=== PATIENT | male | born 1975 | race Caucasian/White ===

== ENCOUNTER 2016-07-17 21:22 | Emergency (ER) | payer MEDICAID ==
--- NOTE | 2016-07-17 23:01 | EDPHY ---
H & P Smoking Status: Never smoked Time Seen by Provider: 07/17/16 22:14 HPI/ROS: CHIEF COMPLAINT: Right tooth pain HISTORY OF PRESENT ILLNESS: 40-year-old male presents to the emergency department with right lower dental pain. The patient states that he broke his right lower tooth a long time ago and over the last few days has noticed pain and burning sensation in his right lower gums radiating up into his right forehead. He denies any acute trauma. He does not have a dentist. No fevers or chills. He has been taking ibuprofen and Percocet at home for pain. ROS: Denies dysphagia, facial swelling, fevers or chills. ([place] Nath) Past Medical/Surgical History: [place] teeth extraction, orthopedic surgery, back surgery, chronic back pain ( [place] Nath) Social History: and lives in [place] ([place] Nath) Physical Exam: On examination the patient has no facial swelling. He speaking in full sentences. No trismus. Afebrile. He has a fractured right lower 2nd molar. He has no obvious abscess or signs of swelling. He has reproducible pain with palpation in the right lower gingival mucosa. There is no posterior pharyngeal injection noted. No cervical lymphadenopathy. Neck is supple. No evidence of obvious abscess. No palpable fluctuance. ([place] Nath) Constitutional: Initial Vital Signs Temperature (C) 36.5 C 07/17/16 21:33 Heart Rate 103 H 07/17/16 21:33 Respiratory Rate 20 07/17/16 21:33 Blood Pressure 126/94 H 07/17/16 21:33 O2 Sat (%) 99 07/17/16 21:33 O2 Delivery Mode Room Air Allergies/Adverse Reactions: amoxicillin Allergy (Verified 07/17/16 21:33) Home Medications: Medication Instructions Recorded Adderall 10 MG (RX) 02/06/14 Amoxicillin Trihydrate 500 mg PO Q8 #30 cap 02/06/14 [Amoxicillin 500mg capsule] IBUPROFEN 02/06/14 oxyCODONE/APAP 5/325 [Percocet] 1 - 2 tab PO Q4-6PRN PRN #13 tab 02/06/14 Clindamycin 450 mg PO Q8 #90 cap 07/17/16 MDM/Departure - MDM Medications Given: Discontinued Medications Clindamycin (Cleocin 150 Mg Prepack#6) 1 btl ALANA CADET ONE PRN Reason: Protocol Stop: 07/17/16 23:03 Last Admin: 07/17/16 23:08 Dose: 1 btl ED Course/Re-evaluation: 40-year-old male presents to the emergency department with right lower dental pain. There is no obvious abscess. He has a known allergy to amoxicillin. He was started on clindamycin. He was given dental referral. He was instructed to return if he developed facial swelling, fever, or if he felt worse in any way. ([place] Nath) I did not see this patient while he was in the emergency department. However his care was discussed with the PA while the patient was in the department. I agree with treatment plan and management (Mark Gee) - Depart Disposition: Home, Routine, Self-Care Clinical Impression: Dental infection Fractured tooth Qualifiers: Encounter type: initial encounter Fracture type: closed Qualified Code(s): S02.5XXA - Fracture of tooth (traumatic), initial encounter for closed fracture Condition: Good Instructions: Clindamycin (By mouth), Dental Caries (ED), Toothache (ED) Additional Instructions: Clindamycin as directed. Warm salt water gargles as discussed. Apply warm compresses to your cheek. Ibuprofen 600 mg every 8 hours as needed for pain you should follow up with a dentist as soon as possible. Return if you develop fever, facial swelling, increasing pain, or if you feel worse in any way. Prescriptions: Clindamycin 450 mg PO Q8 #90 cap Referrals: [facility] [Other] - As per Instructions [facility] [Outside] - As per Instructions [facility] [Outside] - As per Instructions Dental [facility] [Outside] - As per Instructions Dental [facility] [Outside] - As per Instructions Dental [facility] [Outside] - As per Instructions
[2016-07-17] MEDS ORDERED: CLINDAMYCIN 150MG PREPACK#6 BTL TAKEHOME ONE (23:02)
[2016-07-17 23:09] VITALS: BP 133/74; PULSE 74; RESP 16; TEMP 97.9; O2SAT 96
== END 2016-07-17 23:09 | disposition home or self-care (01) ==
DX: K04.7 Periapical abscess without sinus (principal); K03.81 Cracked tooth

== ENCOUNTER 2017-06-02 00:55 | Emergency (ER) | payer MEDICAID ==
[2017-06-02 01:02] VITALS: RESP 18; O2SAT 97
[2017-06-02] MEDS ORDERED: KETOROLAC 15 MG/1 ML SDV IVP ONE (01:55)
[2017-06-02] MEDS ORDERED: DIAZEPAM 5 MG/ML 1 ML SYR IVP ONE (01:55)
[2017-06-02] MEDS ORDERED: DEXAMETHASONE 4 MG/ML VIAL IVP ONE (01:55)
[2017-06-02] MEDS ORDERED: GABAPENTIN 300 MG CAP PO ONE (01:55)
--- NOTE | 2017-06-02 04:16 | EDPHY ---
H & P Stated Complaint: Back pain, cant stand, "shooting pains" Time Seen by Provider: 06/02/17 01:27 HPI/ROS: HPI The patient presents with lower back pain which has been present for the last several days. He thinks he injured his back a few days ago with heavy lifting. He does have a history of chronic low back pain which is occasionally exacerbated. He has been taking Percocet and ibuprofen without any improvement in his symptoms. He does have pain that radiates to his right anterior thigh which is sharp in nature. His pain is worse with walking, flexion of his neck. He denies any leg weakness. He does not have any changes in his bowel or bladder function. He does report paresthesias in his legs. REVIEW OF SYSTEMS Constitutional: No fever, no chills. Eyes: No discharge. ENT: No sore throat. Cardiovascular: No chest pain, no palpitations. Respiratory: No cough, no shortness of breath. Gastrointestinal: No abdominal pain, no vomiting. Genitourinary: No hematuria. Musculoskeletal: Positive for back pain. Skin: No rashes. Neurological: No headache. 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 PHYSICAL General Appearance: Alert, no distress Eyes: Pupils equal and round no pallor or injection ENT, Mouth: Mucous membranes moist Respiratory: There are no retractions, lungs are clear to auscultation Cardiovascular: Regular rate and rhythm Gastrointestinal: Abdomen is soft and non-tender, no masses, bowel sounds normal Back: There is tenderness to palpation of the right lower lumbar paraspinal muscles, there is no midline tenderness Neurological: A&O, strength is 5/5 in the lower extremities though somewhat limited by pain, there is decreased sensation to light touch throughout his feet Skin: Warm and dry, no rashes Musculoskeletal: Neck is supple non tender Extremities: symmetrical, full range of motion Psychiatric: Patient is oriented X 3, there is no agitation Source: Patient - Personal History Current Tetanus Diphtheria and Acellular Pertussis (TDAP): Yes Tetanus Vaccine Date: 2009 - Medical/Surgical History Hx Asthma: No Hx Chronic Respiratory Disease: No Hx Diabetes: No Hx Cardiac Disease: No Hx Renal Disease: No Hx Cirrhosis: No Hx Alcoholism: No Hx HIV/AIDS: No Hx Splenectomy or Spleen Trauma: No Other PMH: low back surgery. L ankle surgery. R knee surgery. wisdom teeth removed - Social History Smoking Status: Never smoked Constitutional: Initial Vital Signs Temperature (C) 36.7 C 06/02/17 00:59 Heart Rate 89 06/02/17 00:59 Respiratory Rate 18 06/02/17 00:59 Blood Pressure 127/82 H 06/02/17 00:59 O2 Sat (%) 97 06/02/17 00:59 O2 Delivery Mode Room Air Allergies/Adverse Reactions: amoxicillin Allergy (Verified 06/02/17 00:58) Home Medications: Medication Instructions Recorded Adderall 10 MG (RX) 02/06/14 Amoxicillin Trihydrate 500 mg PO Q8 #30 cap 02/06/14 [Amoxicillin 500mg capsule] IBUPROFEN 02/06/14 oxyCODONE/APAP 5/325 [Percocet] 1 - 2 tab PO Q4-6PRN PRN #13 tab 02/06/14 Clindamycin 450 mg PO Q8 #90 cap 07/17/16 Diazepam [Valium 5 MG (*)] 5 mg PO TID PRN #15 tab 06/02/17 methylPREDNISolone [Medrol Dose 4 mg PO DAILY 7 Days ea 06/02/17 Erik] Medical Decision Making Differential Diagnosis: This is a a 41-year-old male with history of lumbar diskectomy about 10 years ago who presents with ongoing lower back pain for several days associated with paresthesias of his legs without any bowel or bladder symptoms or motor weakness. In the emergency department, patient was given pain medications. He had improvement in his symptoms and was able to rest. Differential diagnosis includes lumbar radiculopathy, disc herniation, less likely nephrolithiasis. Postvoid residual was performed and was 0. The patient was offered admission for pain control and possible MRI. He declines because of his responsibilities at home. He will be discharged and says he will follow up with his primary care doctor. I have also given him information for the neurosurgeon client development consultant if you would like to follow up with them. He is happy with this plan. - Data Points Medications Given: Discontinued Medications Dexamethasone (Decadron Injection) 8 mg IVP EDNOW ONE Stop: 06/02/17 01:56 Last Admin: 06/02/17 02:19 Dose: 8 mg Diazepam (Valium) 5 mg IVP EDNOW ONE Stop: 06/02/17 01:56 Last Admin: 06/02/17 02:20 Dose: 5 mg Gabapentin (Neurontin) 600 mg PO EDNOW ONE Stop: 06/02/17 01:56 Last Admin: 06/02/17 02:19 Dose: 600 mg Ketorolac Tromethamine (Toradol) 15 mg IVP EDNOW ONE Stop: 06/02/17 01:56 Last Admin: 06/02/17 02:19 Dose: 15 mg Departure - Departure Disposition: Home, Routine, Self-Care Clinical Impression: Lumbar radiculopathy Lower back pain Qualifiers: Chronicity: acute Back pain laterality: left Sciatica presence: with sciatica Sciatica laterality: sciatica of left side Qualified Code(s): M54.42 - Lumbago with sciatica, left side Condition: Good Instructions: Low Back Strain (ED), Lumbar Radiculopathy (ED) Additional Instructions: I recommend that you follow up with your primary care doctor or the neurosurgeon I have listed below for a follow-up appointment and possible MRI. Please return to the emergency department if your worse in any way. I recommend that you take your usual medication, I would add ibuprofen 400 mg every 6 hr to this. Referrals: [facility] [Other] - As per Instructions Ben Lockwood MD [Medical Doctor] - As per Instructions Prescriptions: Diazepam [Valium 5 MG (*)] 5 mg PO TID PRN #15 tab PRN Reason: Spasms methylPREDNISolone [Medrol Dose Erik] 4 mg PO DAILY 7 Days ea
[2017-06-02 04:27] VITALS: BP 110/72; PULSE 68; TEMP 97.7
== END 2017-06-02 04:42 | disposition home or self-care (01) ==
DX: M54.16 Radiculopathy, lumbar region (principal)
CPT/HCPCS: 96374; J1100; J1885; J3360

== ENCOUNTER 2017-06-03 14:20 | Emergency (ER) | payer MEDICAID ==
[2017-06-03 14:34] VITALS: PULSE 78; RESP 16
--- NOTE | 2017-06-03 14:53 | EDPHY ---
H & P Stated Complaint: Appt for neurosurg tomorrow;pt requests MRI prior to appt Source: Patient Exam Limitations: No limitations - Personal History Current Tetanus Diphtheria and Acellular Pertussis (TDAP): Yes Tetanus Vaccine Date: 2009 - Medical/Surgical History Hx Asthma: No Hx Chronic Respiratory Disease: No Hx Diabetes: No Hx Cardiac Disease: No Hx Renal Disease: No Hx Cirrhosis: No Hx Alcoholism: No Hx HIV/AIDS: No Hx Splenectomy or Spleen Trauma: No Other PMH: low back surgery. L ankle surgery. R knee surgery. wisdom teeth removed - Social History Smoking Status: Never smoked Time Seen by Provider: 06/03/17 14:52 HPI/ROS: HPI: This is a 41-year-old male who presents with Chief Complaint: Appt for neurosurgery tomorrow;pt requests MRI prior to appt Location: Lower back Quality: Sharp aching pain Duration: 1 week Signs and Symptoms: No bleeding, no radiation, no numbness, no weakness, no tingling, no incontinence, no decreased range of motion, no swelling, no pain Timing: Worsening Severity: 09/21 Context: Patient reports that he has a history of lower back surgery in [place] of diskectomy several years ago is after an accident occurred. He was lifting a box approximately 1 month ago for his felt a popping sensation in his lower back midline area. Approximately 1 week ago the lower back pain started to increase in intensity to be 9/10, radiating down into his left posterior and anterior thigh. Pain is worsened with extension sitting for long periods of time. Primary care provider manage his chronic back pain with Percocet 7.5 mg and Valium. Patient was seen in the emergency room last night and offered an MRI but had to return to his children so politely declined. He has an appointment with Dr. Rowell tomorrow at 8:45 a.m. For further evaluation of his low back pain. He is requesting an MRI to be performed in the emergency room. Started Medrol Dosepak today wearing a back brace with mild improvement of symptoms. Denies LOC/head injury/neck pain/dizziness/nausea/vomiting/ amnesia. Denies any urinary symptoms. Modifying Factors: See above Comment: ROS: see HPI Constitutional: No fever, no chills, no weight loss Eyes: No blurred vision Respiratory: No shortness of breath, no cough Cardiovascular: No chest pain Gastrointestinal: No nausea, no vomiting no diarrhea Genitourinary: No dysuria Extremities: No myalgias Neurologic: No weakness, no numbness Skin: No rashes Hematologic: No bruising, no bleeding MEDICAL/SURGICAL/SOCIAL HISTORY: Medical history: Generally healthy. Does not take any regular medications. Surgical history: low back surgery, L ankle surgery, R knee surgery, wisdom teeth removed Social history: Unemployed. CONSTITUTIONAL: Well-appearing adult middle-aged male, awake and alert, no obvious distress HEENT: Atraumatic and normocephalic. NECK: supple, no midline tenderness, flexion 45 degrees, extension 45 degrees, right and left lateral flexion 45 degrees. No meningismus. Cardiovascular: Normal S1/S2, regular rate, regular rhythm, without murmur rub or gallop. PULMONARY/CHEST: Symmetrical and nontender. no crepitus. Clear to auscultation bilaterally. Good air movement. No accessory muscle usage. ABDOMEN: Soft, nondistended, nontender, no ecchymosis. PELVIC: no pain with rocking; bilateral hips flexion 125 degrees, extension 30 degrees, with no pain internal rotation and no pain external rotation. BACK: No midline tenderness, no paraspinous spasm, deep tendon reflexes 2/2, no pain with straight leg raise, relatively good flexion, extension, bilateral lateral rotation. No foot drop. Achilles tendon reflexes equal bilaterally. EXTREMITIES: 2/2 pulses, strength 5/5, DIP/PIP/MCP flexion/extension intact with good light touch sensation. no deformities, no clubbing, no cyanosis or edema. NEUROLOGICAL: no focal neuro deficits. GCS 15. Light touch sensation intact. SKIN: Warm and dry, no erythema. no rash. Good capillary refill. (Nick,Terra) Constitutional: Initial Vital Signs Temperature (C) 36.7 C 06/03/17 14:24 Heart Rate 78 06/03/17 14:24 Respiratory Rate 16 06/03/17 14:24 Blood Pressure 128/87 H 06/03/17 14:24 O2 Sat (%) 100 06/03/17 14:24 O2 Delivery Mode Room Air Allergies/Adverse Reactions: amoxicillin Allergy (Intermediate, Verified 06/03/17 14:28) "insides felt seared", diarrhea steroid injection Allergy (Intermediate, Uncoded 06/03/17 14:27) Hives Home Medications: Medication Instructions Recorded Adderall 10 MG (RX) 02/06/14 IBUPROFEN 02/06/14 oxyCODONE/APAP 5/325 [Percocet] 1 - 2 tab PO Q4-6PRN PRN #13 tab 02/06/14 Diazepam [Valium 5 MG (*)] 5 mg PO TID PRN #15 tab 06/02/17 methylPREDNISolone [Medrol Dose 4 mg PO DAILY 7 Days ea 06/02/17 Erik] Cyclobenzaprine [Flexeril 10 MG 10 mg PO 06/03/17 (*)] Medical Decision Making - Diagnostics Imaging Results: Imaging Impressions Lumbar Spine MRI 06/03/17 14:58 Impression: Degenerative disk disease at L4-L5 and L5-S1. Please see above. Results discussed with Dr. Nair. ED Course/Re-evaluation: MRI lumbar spine, oral medications ordered Given p.o. Percocet and p.o. Valium per patient's regular pain management regimen No signs of neurovascular compromise/tenting of skin/compartment syndrome/ extremities and joints examined above and below area of concern and are neurovascularly intact/cauda equina syndrome/diskitis/myositis. 1627: Reassessed patient. Just returned from MRI. Sitting calmly. Patient prefers to be discharged home without waiting for the MRI results. Has a follow-up appointment with Neurosurgery in the a.m. Given MRI on disc. 1700: Dr. Trenton camacho called by radiologist who advised that there is a disc herniation as well as annular tear at L4-L5 and L5-S1. Patient ambulatory at discharge with improvement in pain. This patient was seen under the supervision of my secondary supervising physician. I evaluated care for this patient independently. Discussed this patient with Dr. Nair who did not see the patient. (Millicent Romero) Differential Diagnosis: Back pain including but not limited to muscular pain, herniated disc, spine fracture, intra-abdominal causes and urinary tract infection. (Millicent Romero) Other Provider: The patient was evaluated and managed by the Physician Postpartum Rn. I discussed the patient's presentation and course with the midlevel provider with them and agree with the evaluation. My co-signature indicates that I have reviewed this chart and I agree with the findings and plan of care as documented. I am the secondary supervising physician. (Dionna Nair) - Data Points Medications Given: Discontinued Medications Diazepam (Valium) 5 mg PO EDNOW ONE Stop: 06/03/17 14:59 Last Admin: 06/03/17 15:07 Dose: 5 mg Oxycodone/Acetaminophen (Percocet 5/325) 2 tab PO EDNOW ONE Stop: 06/03/17 14:59 Last Admin: 06/03/17 15:06 Dose: 2 tab Departure - Departure Disposition: Home, Routine, Self-Care Clinical Impression: Lumbar disc herniation with radiculopathy, Lumbar degenerative disc disease Low back strain Qualifiers: Encounter type: initial encounter Qualified Code(s): S39.012A - Strain of muscle, fascia and tendon of lower back, initial encounter Condition: Good Instructions: Low Back Strain (ED), Degenerative Disc Disease (ED) Additional Instructions: Return to the ER immediately if you have new or worsening back pain, fevers/ chills, flu like symptoms, incontinence or inability to urinate or defecate, weakness, paralysis, or any other symptom that concerns you. Take Medrol Dosepak and use Percocet and muscle relaxers as needed for pain and muscle spasms. Please keep follow-up appointment with Dr. Dacosta tomorrow as already scheduled. Referrals: PCP Not In,Dictionary [Medical Doctor] - As per Instructions Demetrius Dacosta MD [Medical Doctor] - 06/04/17
[2017-06-03] MEDS ORDERED: OXYCODONE/APAP 5/325 TAB PO ONE (14:58)
[2017-06-03] MEDS ORDERED: DIAZEPAM 5 MG TAB PO ONE (14:58)
[2017-06-03 17:11] VITALS: BP 134/84; TEMP 98.4; O2SAT 96
== END 2017-06-03 17:10 | disposition home or self-care (01) ==
DX: S39.012A Strain of muscle, fascia and tendon of lower back, initial encounter (principal); M51.16 Intervertebral disc disorders with radiculopathy, lumbar region; X58.XXXA Exposure to other specified factors, initial encounter